=== PATIENT | female | born 1990 | race Caucasian/White ===

== ENCOUNTER 2017-01-03 22:35 | Emergency (ER) | payer OTHER ==
[~2017-01-03] VITALS: Ht 162.6 cm; Wt 56.0 kg
[2017-01-03 22:40] VITALS: Ht 162.6 cm; Wt 56.0 kg
--- NOTE | 2017-01-04 01:14 | ERA ---
ER Documentation Chief Complaint Date/Time DATE: 01/04/17 TIME: 01:09 Chief Complaint LUQ abd pain x 2 months HPI This is a 26-year-old female is presenting with a chief complaint of generalized abdominal discomfort postprandial 11+ months. Patient states that it is worse today and she has been living off on being seen by another medical professional for the condition as her primary care provider has not done anything for her. Patient does not take any medications and has no significant medical history. Patient's family met history includes heart disease and diabetes. Patient denies smoking, alcohol abuse or recreational drug use. Patient quit drinking alcohol 1 year ago for unspecified reasons. Patient denies fever, anorexia, weight loss, migrating pain, constipation, postprandial abdominal pain, new or recently changed medications, genital pain or ingestion of new or undercooked food. Patient has not taken any medications to improve her symptoms. Patient has no other was at this time ROS All systems reviewed and are negative except as per history of present illness. Allergies Allergies: Coded Allergies: No Known Allergy (Unverified , 01/03/17) PMhx/Soc Medical and Surgical Hx: pt denies Medical Hx, pt denies Surgical Hx Hx Alcohol Use: No Hx Substance Use: No Hx Tobacco Use: No Smoking Status: Never smoker Physical Exam Vitals Vital Signs Date Time Temp Pulse Resp B/P Pulse Ox O2 Delivery O2 Flow Rate FiO2 01/03/17 22:40 97.6 72 20 122/71 99 Physical Exam Const: Healthy-appearing. Well-nourished. Well-developed. No acute distress. Head: Normocephalic, Atraumatic. No sinus tenderness. Eyes: Non-injected; No scleral erythema, discharge or foreign body. EOMI and FER bilaterally. Ears: Normal External Ears, EACs clear, TM normal bilaterally without erythema. Nose: Normal nose without discharge, septal deviation, or sinus tenderness. Oral: No oral edema visualized. Mucous membranes moist and pink. Neck: No cervical lymphadenopathy, masses or goiter palpated. Full range of motion. Supple. Trachea midline. ~ No meningismus. Pulm: Good air movement in upper and lower respiratory tracts. No dyspnea, stridor, tripoding or drooling. Clear to auscultation bilaterally. Percussion unremarkable in all lung gaspar bilaterally. Cardio: Regular rate and rhythm; No murmurs, gallops or rubs auscultated. No JVD grossly observed. Radial and posterior tibial pulses 2+ bilaterally. No cyanosis. Capillary refill less than 2 seconds. Abd: Decreased bowel sounds. Soft, non tender, non distended. No guarding, masses. No McBurney's point tenderness. MS: Normal motor strength, normal tone with gross examination. Skin: No petechiae or rashes. No ulcer, induration, jaundice. Good turgor. Back: No midline, flank or CVA tenderness. Ext: No cyanosis, or edema. Normal movement of all extremities grossly observed. Neur: Awake, alert and oriented x3. Neurovascularly intact bilaterally. Psych: Active and alert. Normal Mood and Affect. Oriented x3. Result Diagram: 01/04/1711401/04/17114 Results 24 hrs Laboratory Tests Test 01/04/17 01:15 01/04/17 04:50 White Blood Count 6.910^3/ul Red Blood Count 4.2910^6/ul Hemoglobin 12.4g/dl Hematocrit 38.6% Mean Corpuscular Volume 90.0fl Mean Corpuscular Hemoglobin 28.9pg Mean Corpuscular Hemoglobin Concent 32.1g/dl Red Cell Distribution Width 12.2% Platelet Count 96283^3/UL Mean Platelet Volume 12.7fl Neutrophils % 55.4% Lymphocytes % 33.9% Monocytes % 9.1% Eosinophils % 1.0% Basophils % 0.3% Nucleated Red Blood Cells % 0.0/100WBC Neutrophils # 3.910^3/ul Lymphocytes # 2.410^3/ul Monocytes # 0.610^3/ul Eosinophils # 0.110^3/ul Basophils # 0.010^3/ul Nucleated Red Blood Cells # 0.010^3/ul Sodium Level 144mmol/L Potassium Level 4.1mmol/L Chloride Level 105mmol/L Carbon Dioxide Level 29mmol/L Anion Gap 14 Blood Urea Nitrogen 17mg/dl Creatinine 0.90mg/dl Glucose Level 89mg/dl Calcium Level 9.6mg/dl Total Bilirubin 0.4mg/dl Direct Bilirubin 0.00mg/dl Indirect Bilirubin 0.4mg/dl Aspartate Amino Transf (AST/SGOT) 21IU/L Alanine Aminotransferase (ALT/SGPT) 25IU/L Alkaline Phosphatase 59IU/L Total Protein 8.3g/dl Albumin 5.1g/dl Globulin 3.20g/dl Albumin/Globulin Ratio 1.59 Bedside Urine pH (LAB) 5.5 Bedside Urine Protein (LAB) Negative Bedside Urine Glucose (UA) Negative Bedside Urine Ketones (LAB) Negative Bedside Urine Blood Trace-intact Bedside Urine Nitrite (LAB) Negative Bedside Urine Leukocyte Esterase (L Negative Procedures/MDM Patient was evaluated and worked up for abdominal discomfort as described in history and physical examination. Patient denied pain medications. The workup included CBC, CMP, lipase and urine dip which were all within normal limits. test was negative. Ultrasound of the abdomen and pelvis were read by the radiologist and the impression was as follows: Unremarkable for the pelvis. And unremarkable for the abdominal. The current most likely diagnosis is irritable bowel syndrome versus abdominal pain of unknown etiology. The treatment plan will thus include recommendations for dietary change and outpatient referral to a GI specialist. At this time I do not suspect appendicitis, ectopic , ovarian cyst, PID , UTI, intestinal ischemia, peritonitis, intestinal obstruction, perforated viscus, acute pancreatitis, cholelithiasis, cholangitis, mechanical obstruction , or AAA. On repeat exam, the abdominal exam remains unremarkable. The patient is well appearing, and tolerates PO. I have spoke with the patient regarding their condition and future management. They have verbally responded that they understand their status and treatment plan. The patients vitals are stable, and their current condition is appropriate for discharge. The patient will be given discharge instructions with return precautions. Departure Diagnosis: Primary Impression: Abdominal pain Qualified Code: R10.84 - Generalized abdominal pain Additional Impression: Irritable bowel syndrome (IBS) Qualified Code: K58.9 - Irritable bowel syndrome, unspecified type Condition: Stable Additional Instructions: Follow up with your PCP within the next 1-3 days for a more thorough evaluation and a possible referral to a specialist. Return the the emergency department immediately if symptoms worsen or change. If you have any questions regarding medications, ask your pharmacist or us before you leave. If any adverse reactions occur while taking your medications, discontinue the treatment and return to the emergency department immediately. Take your medications as directed, and complete the entire course of treatment. KEVON HORAN PA-C Jan 04, 2017 01:13
[2017-01-04 02:05] LABS: ADD SCAN DIFF NO
[2017-01-04 02:07] LABS: BASOPHILS % 0.3 % (0.0-2.0); EOSINOPHILS # 0.1 10^3/ul (0.0-0.5); HEMATOCRIT 38.6 % (37.0-47.0); HEMOGLOBIN 12.4 g/dl (12.0-16.0); LYMPHOCYTES # 2.4 10^3/ul (0.8-2.9); LYMPHOCYTES % 33.9 % (15.0-51.0); MEAN CORPUSCULAR HEMOGLOBIN 28.9 pg (29.0-33.0); MEAN CORPUSCULAR HGB CONC 32.1 g/dl (32.0-37.0); MEAN PLATELET VOLUME 12.7 fl (7.4-10.4); MONOCYTE # 0.6 10^3/ul (0.3-0.9); MONOCYTES % 9.1 % (0.0-11.0); NEUTROPHIL # 3.9 10^3/ul (1.6-7.5); NEUTROPHILS % 55.4 % (39.0-77.0); PLATELET COUNT 188 10^3/UL (140-415); RED BLOOD COUNT 4.29 10^6/ul (4.20-5.40); RED CELL DISTRIBUTION WIDTH 12.2 % (11.5-14.5); WHITE BLOOD COUNT 6.9 10^3/ul (4.8-10.8)
[2017-01-04 02:38] LABS: ALBUMIN 5.1 g/dl (3.3-4.9); ALBUMIN/GLOBULIN RATIO 1.59; BILIRUBIN,INDIRECT 0.4 mg/dl (0-1.1); BILIRUBIN,TOTAL 0.4 mg/dl (0.2-1.3); CALCIUM 9.6 mg/dl (8.4-10.2); CREATININE 0.9 mg/dl (0.44-1.00); POTASSIUM 4.1 mmol/L (3.5-5.1); TOTAL PROTEIN 8.3 g/dl (6.1-8.1)
--- NOTE | 2017-01-04 03:42 | RADRPT ---
PROCEDURE: ULTRASOUND LIMITED ABDOMEN CLINICAL INDICATION: 26-year-old female with abdominal pain. TECHNIQUE: Multiple sonographic of the right upper quadrant of the abdomen were obtained. The imag es were reviewed on a PACS workstation. COMPARISON: None. FINDINGS: The pancreas is partially visualized and is otherwise without abnormal echogenicity. The liver displays normal echogenicity. The liver measures 15.1 cm in length. No evidence of intrah epatic biliary ductal dilatation is seen. The portal and hepatic veins are unremarkable. The gallbladder is contracted but without evidence for echogenic sludge or shadowing stones. Gallbl adder wall thickness is within normal limits measuring 2.4 mm. No pericholecystic fluid is seen. Th e common bile duct measures 3.5 mm and is not dilated. The right kidney displays normal echogenicity. The right kidney measures 9.8 cm in maximal length . No caliectasis or hydronephrosis is seen. No free fluid is seen. IMPRESSION: Unremarkable right upper quadrant abdominal ultrasound. .Kurt Ansari MD, MD Date Time Electronically viewed and signed by .Kurt Ansari MD, on 01/04/2017 03:42 .M/
--- NOTE | 2017-01-04 03:44 | RADRPT ---
PROCEDURE: ULTRASOUND PELVIS - TRANSABDOMINAL ONLY CLINICAL INDICATION: 26-year-old female with abdominal/pelvic pain. TECHNIQUE: Multiple sonographic images of the pelvis were obtained utilizing a transabdominal tech nique. The images were reviewed on a PACS workstation. COMPARISON: None. FINDINGS: The uterus is visualized and measures 7.7 x 3.6 x 4.2 cm. The endometrial echo complex is within nor mal limits and measures 14 mm. There is no evidence for free fluid. The right ovary has a normal ech otexture and measures 3.5 x 2.9 x 3.0 cm. The left ovary has a normal echotexture and measures 3.4 x 2.0 x 1.7 cm. There is flow identified within the ovaries bilaterally. No adnexal masses are not ed. IMPRESSION: Unremarkable transabdominal pelvic ultrasound. .Kurt Ansari MD, Date Time Electronically viewed and signed by .Kurt Ansari MD, on 01/04/2017 03:44 .Jesus/
[2017-01-04 04:47] LABS: URINE BLOOD (Dip) POC Trace-intact (NEGATIVE)
[2017-01-04 05:02] VITALS: BP 112/71; PULSE 66; RESP 18; TEMP 98.1
[2017-01-04 07:31] LABS: ADD UMIC NO; URINE BILIRUBIN (Dip) NEGATIVE (NEGATIVE); URINE BLOOD (Dip) NEGATIVE (NEGATIVE); URINE COLOR LT. YELLOW (YELLOW); URINE GLUCOSE (Dip) NEGATIVE (NEGATIVE); URINE KETONES (Dip) NEGATIVE (NEGATIVE); URINE LEUKOCYTE ESTERASE (Dip) NEGATIVE (NEGATIVE); URINE NITRITE (Dip) NEGATIVE (NEGATIVE); URINE TOTAL PROTEIN (Dip) NEGATIVE (NEGATIVE); URINE UROBILINOGEN (Dip) 0.2 E.U./dL (0.1-1.0)
== END 2017-01-04 05:02 | disposition home or self-care (01) ==
LOC: FTE 22:35
DX: R10.84 Generalized abdominal pain (principal); K58.9 Irritable bowel syndrome, unspecified; R10.2 Pelvic and perineal pain
CPT/HCPCS: 76705; 76856; 80053; 81003; 85025

== ENCOUNTER 2017-10-17 05:09 | Emergency (ER) | END 2017-10-17 08:06 | disposition home or self-care (01) ==

== ENCOUNTER 2018-09-23 10:59 | Emergency (ER) | payer OTHER ==
[~2018-09-23] VITALS: Wt 53.0 kg
[~2018-09-23 10:59] MED LIST: BISM262O23 PO; FAMO-96 PO; ONDA8TAB14 PO
[2018-09-23] MEDS ORDERED: ONDANSETRON (ODT) 4 MG TAB ODT STA (11:43)
[2018-09-23] MEDS ORDERED: LIDOCAINE/MYLANTA 40 ML BTL PO ONE (13:30)
[2018-09-23] MEDS ORDERED: BISM-34 PO (13:42)
[2018-09-23] MEDS ORDERED: UDMYL PO (13:42)
[2018-09-23] MEDS ORDERED: ONDA4TAB14 PO (13:42)
--- NOTE | 2018-09-23 13:43 | ERD ---
ER Documentation Chief Complaint Chief Complaint n/v/d, generalized abd pain ROS All systems reviewed and are negative except as per history of present illness. Medications Home Meds Active Scripts Bismuth Subsalicylate* (Bismuth Subsalicylate*) 262 Mg/15 Ml Oral.susp, 15 ML PO Q6 PRN for DIARRHEA for 7 Days, #1 BOTTLE Prov:KEVON SHANKAR DO 09/23/18 Magaldrate/Simethicone* (Mag-Al Plus Suspension*) 30 Ml Oral.susp, 30 ML PO Q6H PRN for GASTROINTESTINAL UPSET, #1 BOTTLE Prov:KEVON SHANKAR DO 09/23/18 Ondansetron (Ondansetron Odt) 4 Mg Tab.rapdis, 4 MG PO Q6H PRN for NAUSEA AND/OR VOMITING, #15 TAB Prov:KEVON SHANKAR DO 09/23/18 Famotidine* (Pepcid*) 20 Mg Tablet, 20 MG PO BID for 10 Days, #20 TAB Prov:DEA MAZARIEGOS MD 10/17/17 Ondansetron (Ondansetron Odt) 8 Mg Tab.rapdis, 8 MG PO Q6H PRN for NAUSEA AND/OR VOMITING, #8 TAB Prov:DEA MAZARIEGOS MD 10/17/17 Bismuth Subsalicylate* (Pepto-Bismol*) 262 Mg/15 Ml Oral.susp, 15 ML PO Q3H PRN for DIARRHEA for 5 Days, ML Prov:DEA MAZARIEGOS MD 10/17/17 Allergies Allergies: Coded Allergies: No Known Allergy (Unverified , 09/23/18) PMhx/Soc Medical and Surgical Hx: pt denies Medical Hx, pt denies Surgical Hx Hx Alcohol Use: No Hx Substance Use: No Hx Tobacco Use: No Smoking Status: Never smoker Physical Exam Vitals Vital Signs Date Temp Pulse Resp B/P (MAP) Pulse Ox O2 O2 Flow FiO2 Time Delivery Rate 09/23/18 98.9 125 20 133/65 99 11:00 (87) Physical Exam Const: No acute distress Head: Atraumatic Eyes: Normal Conjunctiva ENT: Normal External Ears, Nose and Mouth. Neck: Full range of motion. No meningismus. Resp: Clear to auscultation bilaterally Cardio: Regular rate and rhythm, no murmurs Abd: Soft, non tender, non distended. Normal bowel sounds Skin: No petechiae or rashes Back: No midline or flank tenderness Ext: No cyanosis, or edema Neur: Awake and alert Psych: Normal Mood and Affect Result Diagram: 09/23/18 1150 09/23/18 1150 Results 24 hrs Laboratory Tests Test 09/23/18 11:50 09/23/18 11:57 White Blood Count 4.5 10^3/ul Red Blood Count 4.74 10^6/ul Hemoglobin 13.6 g/dl Hematocrit 43.1 % Mean Corpuscular Volume 90.9 fl Mean Corpuscular Hemoglobin 28.7 pg Mean Corpuscular Hemoglobin Concent 31.6 g/dl Red Cell Distribution Width 12.2 % Platelet Count 151 10^3/UL Mean Platelet Volume 11.2 fl Immature Granulocytes % 0.200 % Neutrophils % 90.9 % Lymphocytes % 4.7 % Monocytes % 3.8 % Eosinophils % 0.2 % Basophils % 0.2 % Nucleated Red Blood Cells % 0.0 /100WBC Immature Granulocytes # 0.010 10^3/ul Neutrophils # 4.1 10^3/ul Lymphocytes # 0.2 10^3/ul Monocytes # 0.2 10^3/ul Eosinophils # 0.0 10^3/ul Basophils # 0.0 10^3/ul Nucleated Red Blood Cells # 0.0 10^3/ul Urine Color YELLOW Urine Clarity SLIGHTLY CLOUDY Urine pH 5.0 Urine Specific [place] 1.024 Urine Ketones 2+ mg/dL Urine Nitrite NEGATIVE mg/dL Urine Bilirubin NEGATIVE mg/dL Urine Urobilinogen NEGATIVE mg/dL Urine Leukocyte Esterase 3+ Mahesh/ul Urine Microscopic RBC 1 /HPF Urine Microscopic WBC 4 /HPF Urine Squamous Epithelial Cells FEW /HPF Urine Bacteria FEW /HPF Urine Mucus FEW /HPF Urine Hemoglobin NEGATIVE mg/dL Urine Glucose NEGATIVE mg/dL Urine Total Protein NEGATIVE mg/dl Sodium Level 143 mmol/L Potassium Level 4.2 mmol/L Chloride Level 105 mmol/L Carbon Dioxide Level 27 mmol/L Anion Gap 11 Blood Urea Nitrogen 14 mg/dl Creatinine 0.58 mg/dl Est Glomerular Filtrat Rate mL/min > 60 mL/min Glucose Level 92 mg/dl Calcium Level 9.2 mg/dl Total Bilirubin 1.1 mg/dl Direct Bilirubin 0.00 mg/dl Indirect Bilirubin 1.1 mg/dl Aspartate Amino Transf (AST/SGOT) 21 IU/L Alanine Aminotransferase (ALT/SGPT) 21 IU/L Alkaline Phosphatase 56 IU/L Total Protein 8.2 g/dl Albumin 4.4 g/dl Globulin 3.80 g/dl Albumin/Globulin Ratio 1.15 Lipase 30 U/L POC Beta HCG, Qualitative NEGATIVE Current Medications Medications Dose Sig/Samantha Start Time Status Last (Trade) Ordered Route PRN Stop Time Admin Dose Reason Admin Ondansetron 4 mg ONCE STAT 09/23/18 DC 09/23/18 HCl (Zofran ODT 11:43 11:56 Odt) 09/23/18 11:44 40 ml ONCE ONCE 09/23/18 DC 09/23/18 Miscellaneous PO 13:30 13:08 Medication 09/23/18 13:31 (Gi Cocktail (2)) Departure Diagnosis: Primary Impression: Abdominal pain Abdominal location: generalized Qualified Codes: R10.84 - Generalized abdominal pain Condition: Fair Patient Instructions: Abdominal Pain Referrals: [facility] YOU HAVE RECEIVED A MEDICAL SCREENING EXAM AND THE RESULTS INDICATE THAT YOU DO NOT HAVE A CONDITION THAT REQUIRES URGENT TREATMENT IN THE EMERGENCY DEPARTMENT. FURTHER EVALUATION AND TREATMENT OF YOUR CONDITION CAN WAIT UNTIL YOU ARE SEEN IN YOUR DOCTORS OFFICE WITHIN THE NEXT 1-2 DAYS. IT IS YOUR RESPONSIBILITY TO MAKE AN APPOINTMENT FOR FOLOW-UP CARE. IF YOU HAVE A PRIMARY DOCTOR --you should call your primary doctor and schedule an appointment IF YOU DO NOT HAVE A PRIMARY DOCTOR YOU CAN CALL OUR PHYSICIAN REFERRAL HOTLINE AT IF YOU CAN NOT AFFORD TO SEE A PHYSICIAN YOU CAN CHOSE FROM THE FOLLOWING [facility] [address] [facility] [address] [facility] [address] [facility] [address] [facility] [address] [facility]. [facility]. [address] Additional Instructions: Call your primary care doctor TOMORROW for an appointment during the next 1-2 days.See the doctor sooner or return here if your condition worsens before your appointment time. KEVON SHANKAR DO Sep 23, 2018 13:43
== END 2018-09-23 13:51 | disposition home or self-care (01) ==
LOC: FTE 10:59
DX: R10.84 Generalized abdominal pain (principal); R11.2 Nausea with vomiting, unspecified
CPT/HCPCS: 36415; 74018; 80053; 81001; 81025; 83690; 85025

== ENCOUNTER 2019-01-22 12:40 | Emergency (ER) | payer OTHER ==
[~2019-01-22] VITALS: Ht 160 cm; Wt 52.6 kg
[~2019-01-22 12:40] MED LIST changes: +BISM-34 PO; +ONDA4TAB14 PO; +UDMYL PO
[2019-01-22 12:46] VITALS: Ht 160 cm; Wt 52.6 kg
[2019-01-22] MEDS ORDERED: SOD CHLORIDE 0.9% 1,000 ML IV STA (13:34)
[2019-01-22] MEDS ORDERED: SOD CHLORIDE 0.9% 100 ML ONE (14:33)
[2019-01-22] MEDS ORDERED: IOHEXOL 100 ML ONE (14:33)
[2019-01-22] MEDS ORDERED: NORE-122 PO (14:40)
[2019-01-22 16:37] VITALS: BP 103/74; PULSE 68; RESP 17
--- NOTE | 2019-01-22 16:42 | ERD ---
ER Documentation Chief Complaint Chief Complaint pt is bib self with c/o weakness, feeling dizzy, abnormal EKG in clinic HPI This is a 28-year-old female with no past medical history the presents to the emergency department complaining of generalized weakness dizziness and shortness of breath that has been present for several days. The patient is on oral contraceptive pills. She denies any swelling of her lower extremities. She denies any calf tenderness. She states that the shortness of breath is worse with exertion. She is complaining of numbness and tingling on her left hand. She went to an urgent care clinic today and they performed an EKG and instructed her to immediately come to the emergency department for abnormal findings in the EKG. The patient denies any chest pain or pressure. The patient has had no re cent travel or prolonged immobilization. Patient does not smoke tobacco. ROS All systems reviewed and are negative except as per history of present illness. Medications Home Meds Reported Medications Norethindrone-E.estradiol-Iron ([place] Fe 1-20 Tablet) 1 Each Tablet, 1 EACH PO DAILY, TAB 01/22/19 Discontinued Scripts Bismuth Subsalicylate* (Bismuth Subsalicylate*) 262 Mg/15 Ml Oral.susp, 15 ML PO Q6 PRN for DIARRHEA for 7 Days, #1 BOTTLE Prov:KEVON SHANKAR DO 09/23/18 Magaldrate/Simethicone* (Mag-Al Plus Suspension*) 30 Ml Oral.susp, 30 ML PO Q6H PRN for GASTROINTESTINAL UPSET, #1 BOTTLE Prov:KEVON SHANKAR DO 09/23/18 Ondansetron (Ondansetron Odt) 4 Mg Tab.rapdis, 4 MG PO Q6H PRN for NAUSEA AND/OR VOMITING, #15 TAB Prov:KEVON SHANKAR DO 09/23/18 Famotidine* (Pepcid*) 20 Mg Tablet, 20 MG PO BID for 10 Days, #20 TAB Prov:DEA MAZARIEGOS MD 10/17/17 Ondansetron (Ondansetron Odt) 8 Mg Tab.rapdis, 8 MG PO Q6H PRN for NAUSEA AND/OR VOMITING, #8 TAB Prov:DEA MAZARIEGOS MD 10/17/17 Bismuth Subsalicylate* (Pepto-Bismol*) 262 Mg/15 Ml Oral.susp, 15 ML PO Q3H PRN for DIARRHEA for 5 Days, ML Prov:DEA MAZARIEGOS MD 10/17/17 Allergies Allergies: Coded Allergies: No Known Allergy (Unverified , 01/22/19) PMhx/Soc Medical and Surgical Hx: pt denies Medical Hx, pt denies Surgical Hx Hx Alcohol Use: No Hx Substance Use: No Hx Tobacco Use: No Smoking Status: Never smoker Physical Exam Vitals Vital Signs Date Temp Pulse Resp B/P (MAP) Pulse Ox O2 O2 Flow FiO2 Time Delivery Rate 01/22/19 98.3 71 16 100/73 100 Room Air 15:40 (82) 01/22/19 98.3 70 18 110/72 98 12:46 (85) Physical Exam Constitutional:Well-developed. Well-nourished. HEENT:Normocephalic. Atraumatic.Pupils were equal round reactive to light. Moist mucous membranes.No tonsillar exudates. Neck: No nuchal rigidity. No lymphadenopathy. No posterior cervical spine tenderness or step-offs. Respiratory: Not using accessory muscles of respiration.Lungs were clear to auscultation bilaterally. No rhonchi. No rales. No wheezing. Cardiovascular: Regular rate regular rhythm.No murmurs. No rubs were appreciated.S1, S2 normal. Distal pulses are palpable 2+ bilaterally. GI: Abdomen was soft. Nontender. Non Distended. No pulsatile abdominal masses or bruits. No rebound. No guarding. Bowel sounds were present and normal. Muscle skeletal: Full range of motion of both the upper and lower extremities bilaterally.Normal muscle tone.No assymetrical calf tenderness or swelling. Skin: No petechia, no purpura. No lesions on the palms or the soles of the feet. No maculopapular rash. NEURO: Patient was alert, awake, orientated x3.No facial droop. Gait observed and normal with no ataxia.Speech had regular rate and rhythm. No focal neurological deficits. Result Diagram: 01/22/19 1348 01/22/19 1348 Results 24 hrs Laboratory Tests Test 01/22/19 13:48 01/22/19 14:02 White Blood Count 4.9 10^3/ul Red Blood Count 4.44 10^6/ul Hemoglobin 12.8 g/dl Hematocrit 39.6 % Mean Corpuscular Volume 89.2 fl Mean Corpuscular Hemoglobin 28.8 pg Mean Corpuscular Hemoglobin Concent 32.3 g/dl Red Cell Distribution Width 12.2 % Platelet Count 170 10^3/UL Mean Platelet Volume 12.0 fl Immature Granulocytes % 0.400 % Neutrophils % 57.5 % Lymphocytes % 33.8 % Monocytes % 7.5 % Eosinophils % 0.6 % Basophils % 0.2 % Nucleated Red Blood Cells % 0.0 /100WBC Immature Granulocytes # 0.020 10^3/ul Neutrophils # 2.8 10^3/ul Lymphocytes # 1.7 10^3/ul Monocytes # 0.4 10^3/ul Eosinophils # 0.0 10^3/ul Basophils # 0.0 10^3/ul Nucleated Red Blood Cells # 0.0 10^3/ul Prothrombin Time 12.7 Sec Prothrombin Time Ratio 1.0 INR International Normalized Ratio 0.94 Activated Partial Thromboplast Time 28.6 Sec D-Dimer 503.99 ng/ml D-Dimer Comment Urine Color YELLOW Urine Clarity CLEAR Urine pH 5.0 Urine Specific [place] 1.023 Urine Ketones NEGATIVE mg/dL Urine Nitrite NEGATIVE mg/dL Urine Bilirubin NEGATIVE mg/dL Urine Urobilinogen NEGATIVE mg/dL Urine Leukocyte Esterase NEGATIVE Mahesh/ul Urine Microscopic RBC 113 /HPF Urine Microscopic WBC 3 /HPF Urine Mucus FEW /HPF Urine Hemoglobin 2+ mg/dL Urine Glucose NEGATIVE mg/dL Urine Total Protein 2+ mg/dl Sodium Level 142 mmol/L Potassium Level 4.0 mmol/L Chloride Level 108 mmol/L Carbon Dioxide Level 26 mmol/L Anion Gap 8 Blood Urea Nitrogen 13 mg/dl Creatinine 0.71 mg/dl Est Glomerular Filtrat Rate mL/min > 60 mL/min Glucose Level 104 mg/dl Calcium Level 8.9 mg/dl Total Bilirubin 0.8 mg/dl Direct Bilirubin 0.00 mg/dl Indirect Bilirubin 0.8 mg/dl Aspartate Amino Transf (AST/SGOT) 22 IU/L Alanine Aminotransferase (ALT/SGPT) 20 IU/L Alkaline Phosphatase 45 IU/L Creatine Kinase 51 IU/L Creatine Kinase Index 0.4 Creatinine Kinase MB (Mass) < 0.22 ng/ml Troponin I < 0.012 ng/ml B-Type Natriuretic Peptide 73 PG/ML Total Protein 7.8 g/dl Albumin 4.1 g/dl Globulin 3.70 g/dl Albumin/Globulin Ratio 1.10 POC Beta HCG, Qualitative NEGATIVE Current Medications Medications Dose Sig/Samantha Start Time Status Last (Trade) Ordered Route PRN Stop Time Admin Dose Reason Admin Sodium 1,000 ml @ Q1H STAT 01/22/19 DC 01/22/19 Chloride 1,000 mls/hr IV 13:34 15:40 01/22/19 14:33 IV Flush 10 ml STK-MED 01/22/19 DC 01/22/19 (NS 10 ml) ONCE .ROUTE 14:33 14:52 01/22/19 14:34 Sodium 100 ml @ ud STK-MED 01/22/19 DC 01/22/19 Chloride ONCE .ROUTE 14:33 14:52 01/22/19 14:34 Iohexol 100 ml @ ud STK-MED 01/22/19 DC 01/22/19 ONCE .ROUTE 14:33 14:52 01/22/19 14:34 Procedures/MDM The patient presented to the emergency department with shortness of breath. My differential diagnosis included but was not limited to upper airway obstruction, CHF, pulmonary embolism, cardiac ischemia, pneumonia, pneumothorax, anemia, drug overdose, pulmonary edema, COPD or asthma. The patient is an intermediate pretest probability according to the Wells criteria for pulmonary embolism. Therefore I obtained a d-dimer. This was elevated. The chest radiograph was normal. I obtained a CT angiogram of the patient's chest and there is no evidence of a pulmonary embolism. 12 Lead EKG tracing ordered and reviewed by myself showed: Normal sinus rhythm of 66 bpm and no arrhythmia. NC interval normal. QRS duration normal. No ST segment elevation No ST segment depression. No changes consistent with acute ischemia. Q waves present in the septal lead V2. Patient had no severe left leg abnormalities. I did feel her physical exam findings were result of paresthesias. There did not appear to be an acute life- threatening etiology as a result of her shortness of breath. I did feel that she would benefit from following up with her primary care physician on an outpatient basis. The patient was discharged home in fair condition. They were instructed to return to the emergency department at any time if there was any worsening of their condition. The patient stated they would follow up with their PCP in the next 24-48 hours to initiate a suitable medication regimen under the care of their PCP as well as to allow their PCP to monitor any drug reactions. The patient was discharged home with prescriptions after they gave informed consent to the new medication. They were also fully informed by myself on the adverse effects and adverse drug interactions in order to provide adequate safeguards to prevent possible adverse reactions to medications. Departure Diagnosis: Primary Impression: Shortness of breath Additional Impression: Paresthesias Condition: Fair Patient Instructions: Coping with Shortness of Breath: Controlling Stress, Paraesthesias MAAY MELGAR MD Jan 22, 2019 16:42
== END 2019-01-22 16:38 | disposition home or self-care (01) ==
LOC: E/R 12:40
DX: R20.2 Paresthesia of skin (principal); R06.02 Shortness of breath
CPT/HCPCS: 71045; 71275; 80053; 81001; 81025; 82550; 82553; 83880; 84484; 85025; 85378; 85610; 85730; 93005; 99285; J7030; Q9967